=== PATIENT | female | born 1945 | race Caucasian/White ===

== ENCOUNTER 2017-12-15 08:28 | Outpatient (CLI) | payer OTHER ==
--- NOTE | 2017-12-15 09:39 | US ---
EXAM: Ultrasound venous Doppler right lower extermity HISTORY: Localized edema COMPARISON: None TECHNIQUE: Venous duplex ultrasound of the right lower extremity was performed using color, guerrero-[id number] le, and Doppler flow imaging. FINDINGS: There is normal color flow and compression of the right common femoral, greater saphenous, profunda femoral, femoral, popliteal, peroneal, and posterior tibial veins without evidence of intra luminal thrombus. Anterior tibial veins not visualized. Lower extremity subcutaneous edema. IMPRESSION: No right lower extremity deep venous thrombosis at the visualized levels.
--- NOTE | 2017-12-15 09:48 | DI ---
EXAM: RIGHT KNEE. HISTORY: Knee pain. FINDINGS: Right knee three-view. General bone density appears mildly decreased. There is moderate anterior compartment osteoarthritis. Mild medial compartment osteoarthritis. No fracture or joint e ffusion. IMPRESSION: Osteoarthritis of the anterior and medial compartments.
== END 2017-12-15 08:29 | disposition home or self-care (01) ==
LOC: RAD 08:28
PROVIDERS: ATTEND Family Medicine
DX: R60.0 Localized edema (principal); M25.561 Pain in right knee

== ENCOUNTER 2018-07-27 15:17 | Outpatient (CLI) | END 2018-07-27 15:18 | disposition home or self-care (01) | LOC: RHC-LAB 15:17 | PROVIDERS: ATTEND Nurse Practitioner Family | DX: R05 Cough (principal) | CPT/HCPCS: 87502 ==

== ENCOUNTER 2018-11-17 13:40 | Outpatient (CLI) | END 2018-11-17 13:41 | disposition home or self-care (01) | LOC: LAB 13:40 | PROVIDERS: ATTEND Nurse Practitioner Family | DX: M81.0 Age-related osteoporosis without current pathological fracture (principal); Z78.0 Asymptomatic menopausal state; Z82.62 Family history of osteoporosis; Z87.81 Personal history of (healed) traumatic fracture | CPT/HCPCS: 36415; 82306; 82310; 83735; 84100 ==